=== PATIENT | female | born 2000 | race Caucasian/White ===

== ENCOUNTER 2018-03-18 07:25 | Emergency (ER) | payer SELFPAY ==
[2018-03-18 07:35] VITALS: BP 136/73
[2018-03-18 08:29] LABS: Bacteria,Urine 1+ /HPF (Negative); Bilirubin,Urine NEG (Negative); Blood,Urine LG (Negative); Color,Urine Yellow (Yellow); Mucus,Urine FEW /HPF; Protein,Urine <15 mg/dL mg/dL (Negative); Urobilinogen,Urine < 2.0 mg/dL (<2.0)
[2018-03-18 08:33] LABS: Basophils # (Auto) 0.1 K/mm3 (0.0-0.1); Basophils % (Auto) 0.7 % (0.0-1.8); Eosinophils # (Auto) 0.1 K/mm3 (0.0-0.4); Eosinophils % (Auto) 1.6 % (0.0-4.3); Hemoglobin 10.8 gm/dl (10.1-14.3); Lymphocytes # (Auto) 2.4 K/mm3 (1.2-5.4); Lymphocytes % (Auto) 33.6 % (13.4-35.0); Mean Corpuscular HGB Conc 32 % (30-34); Monocytes # (Auto) 0.6 K/mm3 (0.0-0.8); Monocytes % (Auto) 8.9 % (0.0-7.3); Platelet Count 173 K/mm3 (140-440); Red Blood Count 4.96 M/mm3 (3.65-5.03)
[2018-03-18 08:49] LABS: Mean Corpuscular Volume 69 fl (79-97)
[2018-03-18 08:50] LABS: Mean Corpuscular Hemoglobin 22 pg (28-32); Red Cell Distribution Width 20.5 % (13.2-15.2)
--- NOTE | 2018-03-18 08:55 | Emergency Department Report ---
ED HPI - General Chief complaint: Vaginal Bleeding Stated complaint: AND BLEEDING Time Seen by Provider: 03/18/18 08:52 Source: patient, family Mode of arrival: Ambulatory Limitations: Language Barrier - History of Present Illness MD Complaint: vaginal bleeding -: Gradual, days(s) Improves with: none Worsens with: none Associated symptoms: vaginal bleeding. denies: nausea/vomiting, vaginal discharge, abdominal pain, dysuria, headache, vision changes, malaise, dysparuenia, rash, seizure, shortness of breath, syncope, weakness Vaginal bleeding: light :: Yes Number of weeks : 5 OB History - Current : other (G1) Pre-jared care: none - Related Data : 1 Para: 0 Ab: 0 Allergies Allergy/AdvReac Type Severity Reaction Status Date / Time No Known Allergies Allergy Unverified 03/18/18 07:31 ED Review of Systems ROS: Stated complaint: AND BLEEDING Other details as noted in HPI Comment: All other systems reviewed and negative Constitutional: denies: chills, fever Eyes: denies: eye pain ENT: denies: ear pain Respiratory: denies: cough Cardiovascular: denies: palpitations Endocrine: denies: excessive sweating Gastrointestinal: denies: abdominal pain, nausea, vomiting, diarrhea, constipation, hematemesis, melena Genitourinary: other (VAG BLEEDING W POS HOME PREG TEST; NO PAIN). denies: urgency, dysuria, frequency, hematuria, discharge Musculoskeletal: denies: back pain, arthralgia Skin: denies: rash, lesions Neurological: denies: headache, weakness Psychiatric: denies: anxiety Hematological/Lymphatic: denies: easy bleeding ED Past Medical Hx - Past Medical History Previous Medical History?: No - Surgical History Past Surgical History?: No - Family History Family history: no significant - Social History Smoking Status: Never Smoker Substance Use Type: None ED Physical Exam - General Limitations: Language Barrier General appearance: alert - Head Head exam: Present: atraumatic - Eye Eye exam: Present: PERRL - ENT ENT exam: Present: mucous membranes moist - Neck Neck exam: Present: normal inspection - Respiratory Respiratory exam: Present: normal lung sounds bilaterally - Cardiovascular Cardiovascular Exam: Present: regular rate - GI/Abdominal GI/Abdominal exam: Present: soft, normal bowel sounds. Absent: distended, tenderness, guarding, rebound, rigid, diminished bowel sounds - Rectal Rectal exam: Present: normal inspection - External exam: Present: normal external exam Speculum exam: Present: normal speculum exam, vaginal bleeding, other (OS CLOSED ) Bi-manual exam: Present: normal bi-manual exam. Absent: cervical motion tendernes, adnexal tenderness, adnexal mass - Extremities Exam Extremities exam: Present: normal inspection, full ROM - Back Exam Back exam: Present: normal inspection, full ROM - Neurological Exam Neurological exam: Present: alert, oriented X3, CN II-XII intact - Psychiatric Psychiatric exam: Present: normal affect, normal mood - Skin Skin exam: Present: warm, dry, intact, normal color ED Course Vital Signs 03/18/18 07:31 Temperature 99 F Pulse Rate 71 Respiratory 16 Rate Blood Pressure 136/73 O2 Sat by Pulse 99 Oximetry ED Medical Decision Making - Lab Data Result diagrams: 03/18/18 07:58 03/18/18 07:58 - Radiology Data Radiology results: report reviewed, image reviewed - Medical Decision Making LMP 8-23 POS HOME PREG TEST NOW W VAG BLEED NO OB OF YET OS CLOSED HCG NOTED US NOTED WILL DC W FOLLOW UP - Differential Diagnosis RO SPONT AB Critical care attestation.: If time is entered above; I have spent that time in minutes in the direct care of this critically ill patient, excluding procedure time. ED Disposition Clinical Impression: Threatened miscarriage Disposition: DC-01 TO HOME OR SELFCARE Is pt being admited?: No Does the pt Need Aspirin: No Condition: Stable Instructions: Threatened Miscarriage (ED) Additional Instructions: VAGINAL REST DAILY MULTI VITAMIN FOLLOW UP OBGYN IN 48 HOURS FOR REPEAT LAB WORK TO ESTABLISH HYDRATE WELL REST DIET TOLERATED Referrals: MANJIT SANCHEZ MD [Primary Care Provider] - 3-5 Days TEE VELASCO MD [Referring] - 3-5 Days Time of Disposition: 11:47
[2018-03-18 09:15] LABS: BUN/Creatinine Ratio 27; Blood Urea Nitrogen 16 mg/dL (7-17); Calcium 9.2 mg/dL (8.4-10.2); Hemolysis Index 4
--- NOTE | 2018-03-18 11:43 | Ultrasound Report ---
ULTRASOUND OB LESS THAN 14 WEEKS FETUS ULTRASOUND OB TRANSVAGINAL HISTORY: Vaginal bleeding. COMPARISON: None. TECHNIQUE: Transabdominal and transvaginal ultrasound with color doppler interrogation. FINDINGS: Uterus: 7 x 5 x 6 cm. No uterine masses appreciated. Normal cervix. Endometrium: An intrauterine gestational sac is suggested measuring 8.1 mm. This correlates with a 5 week, 4 day . No convincing pole, yolk sac or cardiac activity is identified at this time. Right ovary: 3.4 x 2.1 x 2.9 cm. A 1.5 cm corpus luteum cyst is suspected in the right ovary. Left ovary: 3.8 x 1.3 x 2.5 cm. No focal abnormality. No pelvic fluid or mass is identified. Normal color doppler interrogation. IMPRESSION: A small intrauterine gestational sac is suspected but no obvious pole or yolk sac at this time. This could represent a very early normal . A blighted ovum cannot be excluded. Close interval followup is recommended.
== END 2018-03-18 11:57 | disposition home or self-care (01) ==
LOC: ED 07:25
DX: O26.891 Other specified pregnancy related conditions, first trimester (principal); O20.0 Threatened abortion; Z3A.01 Less than 8 weeks gestation of pregnancy
CPT/HCPCS: 36415; 76801; 76817; 80048; 81001; 84702; 85025; 86850; 86900; 86901